=== PATIENT | male | born 1975 | race Asian ===

== ENCOUNTER 2016-12-04 20:12 | Emergency (ER) | payer OTHER ==
[~2016-12-04] VITALS: Ht 175.3 cm; Wt 77.5 kg
[2016-12-04 20:14] VITALS: BP 127/75
[2016-12-04] MEDS ORDERED: DEXAMETHASONE 4 MG/ML, 1ML PO ONE (20:30)
[2016-12-04] MEDS ORDERED: DEXAMETHASONE 4 MG/ML, 5ML ONE (20:51)
[2016-12-04] MEDS ORDERED: DEXAMETHASONE 4 MG/ML, 1ML ONE ×2 (20:53→20:55)
== END 2016-12-04 21:51 | disposition home or self-care (01) ==
LOC: ED 21:34
DX: J02.9 Acute pharyngitis, unspecified (principal)
CPT/HCPCS: 70360; 99284; J1100; 99283